=== PATIENT | male | born 1985 | race Caucasian/White ===

== ENCOUNTER 2025-02-15 09:40 | Emergency (ER) | payer OTHER ==
[2025-02-15] MEDS ORDERED: HYDROcodone/Acetaminophen 10/325 mg Tablet ONE (09:51)
[2025-02-15] MEDS ORDERED: PHENYLEPHRINE-NS 100 MCG/ML 10 ML SYRINGE FS SCH (10:15)
[2025-02-15 11:28] LABS: Actual Bicarbonate (HCO3v) 22.3 mEq/L (22-28); Analyzer IN Cardio CS ER; Base Excess -9.4 mEq/L (-2 - +2); Calcium, Ionized (venous) 1.18 mmol/L (1.16-1.32); Chloride (VBG) 102 mmol/L (98-106); Critical Notified By: S. Buerger, RRT; Hematocrit-VBG 49 % (42.0-52.0); Hemoglobin (Hb) 16.5 g/dL (13.2-17.3); Potassium (VBG) 4.11 mmol/L (3.70-5.30); Puncture Site Other Site; RapidComm Collect By lab; Sodium 143 mmol/L (133-146)
== END 2025-02-15 13:07 | disposition home or self-care (01) ==
LOC: CSHERS 09:40
DX: N48.30 Priapism, unspecified (principal); F17.200 Nicotine dependence, unspecified, uncomplicated
CPT/HCPCS: 54220; 82805; 96374